=== PATIENT | male | born 1980 | race Caucasian/White ===

== ENCOUNTER 2018-04-23 08:15 | Day surgery (SDC) | payer OTHER ==
[~2018-04-23] VITALS: Ht 177.8 cm; Wt 90.3 kg
[~2018-04-23 08:15] MED LIST: AZIT500 PO; CEPH500 PO; FAMO20; IBUP800; NAPR500 PO; OXYACE5T PO; PENVK500 PO; SULTRIDS PO
--- NOTE | 2018-04-23 09:43 | NUR ---
0915 Ambulatory in Day Surgery Surgical site prepped with 2% Chlorhexidine cloth wipe. History, Chart, Medications and Allergies reviewed before start of procedure.Lungs clear T/O to Auscultation. Patient confirms NPO status and agrees with scheduled surgery. Pre-Op teaching done. Pt verbalizes understanding. Patient reports completing Chlorhexadine shower X2 prior to admission to hospital.
--- NOTE | 2018-04-23 10:26 | NUR ---
04/23/18 1026 Jil Rios 1019 ANESTHESIA AND MD DECIDED TO ABORT PROCEDURE DUE TO ABNORMAL EKG THAT BEGAN ONCE PATIENT WAS ROLLED ON THEIR SIDE FOR PROCEDURE.
--- NOTE | 2018-04-23 11:35 | NUR ---
1125- Discharge instructions reviewed with patient. Patient verbalizes understanding. Copy given to patient to take home. Discharged via wheelchair to private car for ride home.
== END 2018-04-23 22:39 | disposition home or self-care (01) ==
LOC: ORSCMMR 08:15 → ORD 09:45 → ORSCMMR 22:39
PROVIDERS: Surgery
PROC: 0WB8XZX Excision of Chest Wall, External Approach, Diagnostic (ICD-10-PCS; principal; 2018-04-23 09:45)
DX: D17.1 Benign lipomatous neoplasm of skin and subcutaneous tissue of trunk (principal); Z53.9 Procedure and treatment not carried out, unspecified reason; I47.1 Supraventricular tachycardia
CPT/HCPCS: J0690; J2250; J2710; J3010; J7120